=== PATIENT | male | born 1960 | race Caucasian/White ===

== ENCOUNTER 2019-05-08 07:26 | Day surgery (SDC) | payer SELFPAY ==
[~2019-05-08] VITALS: Ht 182.9 cm; Wt 113.4 kg
[~2019-05-08 07:26] MED LIST: AMLODIPINE BESY10 MG PO; ASPIRIN81 MG PO; FLUOXETINE20 MG PO; HYDRALAZINE50 MG PO; LABETALOL200 MG PO; LAMICTAL150 M1 PO; LEVOTHYROXIN25 MC1 PO; SPIRONOLACTONE50 MG PO; TERBINAFINE250 M1 PO; TRAZODONE100 MG PO
[2019-05-08 09:36] VITALS: BP 140/80
== END 2019-05-08 09:47 | disposition home or self-care (01) | DRG 395 ==
LOC: ENDO 07:26 → ORM 09:10 → ENDO 09:47
PROVIDERS: ATTEND Surgery
PROC: 0DBH8ZX Excision of Cecum, Via Natural or Artificial Opening Endoscopic, Diagnostic (ICD-10-PCS; principal; 2019-05-08)
PROC: 0DBL8ZX Excision of Transverse Colon, Via Natural or Artificial Opening Endoscopic, Diagnostic (ICD-10-PCS; 2019-05-08)
PROC: 0DBN8ZX Excision of Sigmoid Colon, Via Natural or Artificial Opening Endoscopic, Diagnostic (ICD-10-PCS; 2019-05-08)
DX: D12.0 Benign neoplasm of cecum (principal); D12.5 Benign neoplasm of sigmoid colon; K63.5 Polyp of colon; K64.8 Other hemorrhoids; D64.9 Anemia, unspecified; K58.1 Irritable bowel syndrome with constipation; I10 Essential (primary) hypertension